=== PATIENT | male | born 1980 | race Caucasian/White ===

== ENCOUNTER 2020-02-05 20:52 | Inpatient (IN) ==
[2020-02-05] MEDS ORDERED: SODIUM CHLORIDE 0.9% 1,000 ML IV STA (21:55)
[2020-02-05] MEDS ORDERED: ONDANSETRON 4 MG/2 ML VIAL IV ONE (21:55)
[2020-02-05] MEDS ORDERED: MORPHINE 4 MG/1 ML VIAL IV STA (21:55)
[2020-02-05] MEDS ORDERED: ALUM/MAG/SIMETH/LIDO VISC 1:1 30 ML BOTTLE PO STA (22:37)
[2020-02-05] MEDS ORDERED: NITROGLYCERIN 2% OINT 1 INCH/GM PACK TOP STA (22:43)
[2020-02-05 22:44] LABS: Basophils # 0.1 10*3/uL (0.0-0.2); Basophils % 0.5 % (0.0-0.8); Eosinophils # 0.1 10*3/uL (0.0-0.87); Eosinophils % 0.5 % (0.00-10.9); Hematocrit 43.4 VOL% (42.0-52.0); Hemoglobin 15.1 GM/DL (14.0-18.0); Immature Granulocytes % 0.7 %; Immature Granulocytes Absolute 0.16 #; Lymphocytes # 0.6 10*3/uL (1.4-4.0); Lymphocytes % 2.9 % (21.2-54.2); Mean Corpuscular HGB Conc 34.8 GM/DL (32-36); Mean Corpuscular Volume 94.8 FL (87-102); Mean Platelet Volume 9.2 FL (9.6-12.0); Neutrophils % 86.4 % (38.7-73.9); Platelet Count 246 T/CUMM (130-400); Red Blood Count 4.58 MC/CUMM (3.8-5.5); Red Cell Distribution Width 12.5 % (9.3-17.3); White Blood Count 21.9 T/CUMM (4-12)
[2020-02-05] MEDS ORDERED: HYDROmorphone 2 MG/1 ML VIAL IV STA (23:07)
[2020-02-05 23:21] LABS: Albumin 3.4 G/DL (3.4-5.0); Bilirubin,Total 0.9 MG/DL (0.2-1.0); Calcium 8.6 MG/DL (8.5-10.1); Osmolality,Calculated 275.8 MOS/KG (273-304); Total Protein 6.2 G/DL (6.4-8.3)
[2020-02-05 23:28] LABS: Band Neutrophils 1 % (0-10); Lymphocytes 1 % (20-55); Segmented Neutrophils 95 % (50-85); Total Cells Counted 100
[2020-02-05 23:29] LABS: Platelet Estimate Normal; Polychromasia Slight
[2020-02-05 23:31] LABS: Stomatocytes Slight
[2020-02-05 23:32] LABS: Spherocytes Slight
[2020-02-05] MEDS ORDERED: PIPERACILLIN/TAZOBACTAM 3,375 MG in SODIUM CHLORIDE 0.9% 100 ML IV STA (23:43)
[2020-02-06 00:01] LABS: Bilirubin,Urine Negative (Negative); Blood, Urine Negative (Negative); Glucose,Urine (UA) Negative (Negative); Hyaline Casts,Urine 3 /LPF (0-3); Ketones,Urine Negative (Negative); Nitrite,Urine Negative (Negative); Protein,Urine Negative; RBC,Urine 9 /HPF (0-4); Urine Appearance CLEAR (Clear); Urine Color Yellow (Yellow); Urine Specific Gravity > 1.060 (1.001-1.035); Urine Urobilinogen < 2.0 EU/DL (0.2-1.0); WBC,Urine 1 /HPF (0-6)
[2020-02-06 00:38] LABS: Risk Ratio 7.32; VLDL CHOLESTEROL 142.6 MG/DL
[2020-02-06] MEDS ORDERED: HYDROmorphone 2 MG/1 ML VIAL IV ONE (01:17)
[2020-02-06] MEDS ORDERED: PROMETHAZINE 25 MG/1 ML VIAL IM PRN (01:23)
[2020-02-06] MEDS ORDERED: ACETAMINOPHEN 325 MG TABLET PO PRN (01:23)
[2020-02-06 02:03] LABS: Barbiturates Screen,Urine Negative (Negative); Benzodiazepines Screen,Urine Negative (Negative); Cannabinoid Screen,Urine Positive (Negative); Opiate Screen,Urine Positive (Negative); Phencyclidine Screen,Urine Negative (Negative)
[2020-02-06] MEDS: SODIUM CHLORIDE 0.9% 1,000 ML IV SCH ×4 (02:14→23:40)
[2020-02-06] MEDS: HYDROmorphone 2 MG/1 ML VIAL IV PRN ×6 (03:10→23:44)
[2020-02-06 06:03] LABS: Basophils % 0.2 % (0.0-0.8); Hematocrit 43.5 VOL% (42.0-52.0); Hemoglobin 14.9 GM/DL (14.0-18.0); Immature Granulocytes % 0.5 %; Immature Granulocytes Absolute 0.08 #; Lymphocytes # 1.2 10*3/uL (1.4-4.0); Lymphocytes % 6.7 % (21.2-54.2); Mean Corpuscular HGB Conc 34.3 GM/DL (32-36); Mean Corpuscular Volume 94.4 FL (87-102); Mean Platelet Volume 9.9 FL (9.6-12.0); Monocytes % 7.1 % (1.7-12.7); Neutrophils % 85.5 % (38.7-73.9); Platelet Count 234 T/CUMM (130-400); Red Blood Count 4.61 MC/CUMM (3.8-5.5); Red Cell Distribution Width 12.7 % (9.3-17.3); White Blood Count 17.4 T/CUMM (4-12)
[2020-02-06] MEDS: ONDANSETRON 4 MG/2 ML VIAL IV PRN ×5 (07:09→23:42)
[2020-02-06 07:10] LABS: Bilirubin,Total 1.1 MG/DL (0.2-1.0); Calcium 7.9 MG/DL (8.5-10.1); Osmolality,Calculated 280.4 MOS/KG (273-304); Total Protein 6.2 G/DL (6.4-8.3)
[2020-02-06] MEDS: gemfibroziL 600 MG TABLET PO SCH ×2 (09:17→16:28)
[2020-02-06] MEDS: lamoTRIgine 100 MG TABLET PO SCH (09:17)
[2020-02-06] MEDS: PANTOPRAZOLE 40 MG VIAL IV SCH ×2 (09:20→21:09)
[2020-02-06] MEDS: cefTRIAXone 2,000 MG in SYRINGE 1 EACH IV SCH (09:23)
[2020-02-06] MEDS: ENOXAPARIN 40 MG/0.4 ML SYRINGE SUBCUT SCH (10:58)
[2020-02-06] MEDS: tiZANidine 4 MG TABLET PO PRN ×2 (11:03→20:52)
[2020-02-06] MEDS ORDERED: LORazepam 2 MG/1 ML VIAL IV PRN (13:14)
[2020-02-06] MEDS ORDERED: BISACODYL 10 MG SUPP RECTAL ONE (13:15)
[2020-02-06] MEDS: GABAPENTIN 300 MG CAPSULE PO SCH (20:49)
[2020-02-06] MEDS: MIRTAZAPINE 15 MG TABLET PO SCH (20:49)
[2020-02-07] MEDS: HYDROmorphone 2 MG/1 ML VIAL IV PRN ×5 (04:20→22:09)
[2020-02-07] MEDS: ONDANSETRON 4 MG/2 ML VIAL IV PRN ×3 (04:20→14:23)
[2020-02-07 05:24] LABS: Basophils # 0.1 10*3/uL (0.0-0.2); Basophils % 0.4 % (0.0-0.8); Eosinophils # 0.1 10*3/uL (0.0-0.87); Eosinophils % 0.5 % (0.00-10.9); Hematocrit 41.7 VOL% (42.0-52.0); Hemoglobin 13.9 GM/DL (14.0-18.0); Immature Granulocytes % 0.5 %; Immature Granulocytes Absolute 0.07 #; Lymphocytes # 1.1 10*3/uL (1.4-4.0); Lymphocytes % 7.3 % (21.2-54.2); Mean Corpuscular HGB Conc 33.3 GM/DL (32-36); Mean Corpuscular Volume 96.3 FL (87-102); Monocytes % 7.4 % (1.7-12.7); Neutrophils % 83.9 % (38.7-73.9); Platelet Count 157 T/CUMM (130-400); Red Blood Count 4.33 MC/CUMM (3.8-5.5); Red Cell Distribution Width 13.2 % (9.3-17.3); White Blood Count 14.4 T/CUMM (4-12)
[2020-02-07 05:45] LABS: Albumin 2.4 G/DL (3.4-5.0); Calcium 7.7 MG/DL (8.5-10.1); Osmolality,Calculated 276.7 MOS/KG (273-304); Total Protein 5.9 G/DL (6.4-8.3)
[2020-02-07 05:53] LABS: Band Neutrophils 7 % (0-10); Lymphocytes 6 % (20-55); Metamyelocytes 1 %; Segmented Neutrophils 84 % (50-85); Total Cells Counted 100
[2020-02-07 05:54] LABS: Hypochromasia Slight; Platelet Estimate Adequate
[2020-02-07] MEDS: SODIUM CHLORIDE 0.9% 1,000 ML IV SCH ×3 (07:04→23:40)
[2020-02-07] MEDS: gemfibroziL 600 MG TABLET PO SCH ×2 (08:13→17:29)
[2020-02-07] MEDS: BISACODYL 5 MG TABLET PO PRN (08:13)
[2020-02-07] MEDS: lamoTRIgine 100 MG TABLET PO SCH (08:13)
[2020-02-07] MEDS: PANTOPRAZOLE 40 MG VIAL IV SCH ×2 (08:15→22:05)
[2020-02-07] MEDS: ENOXAPARIN 40 MG/0.4 ML SYRINGE SUBCUT SCH (08:16)
[2020-02-07] MEDS: cefTRIAXone 2,000 MG in SYRINGE 1 EACH IV SCH (08:16)
[2020-02-07] MEDS: METOCLOPRAMIDE 10 MG/2 ML VIAL IV PRN ×2 (10:21→18:32)
[2020-02-07] MEDS: tiZANidine 4 MG TABLET PO PRN ×2 (10:21→22:04)
[2020-02-07] MEDS: GABAPENTIN 300 MG CAPSULE PO SCH (22:04)
[2020-02-07] MEDS: MIRTAZAPINE 15 MG TABLET PO SCH (22:04)
[2020-02-08] MEDS: HYDROmorphone 2 MG/1 ML VIAL IV PRN ×2 (03:06→09:07)
[2020-02-08] MEDS: SODIUM CHLORIDE 0.9% 1,000 ML IV SCH (05:58)
[2020-02-08] MEDS: METOCLOPRAMIDE 10 MG/2 ML VIAL IV PRN ×2 (06:03→12:35)
[2020-02-08 08:06] LABS: Basophils # 0.1 10*3/uL (0.0-0.2); Basophils % 0.5 % (0.0-0.8); Eosinophils # 0.1 10*3/uL (0.0-0.87); Eosinophils % 1.1 % (0.00-10.9); Immature Granulocytes % 1.5 %; Immature Granulocytes Absolute 0.19 #; Lymphocytes # 1.1 10*3/uL (1.4-4.0); Lymphocytes % 8.2 % (21.2-54.2); Mean Corpuscular HGB Conc 32.8 GM/DL (32-36); Mean Corpuscular Volume 99.7 FL (87-102); Mean Platelet Volume 9.6 FL (9.6-12.0); Monocytes % 9.1 % (1.7-12.7); NRBC # 0.02 10*3/uL; Neutrophils % 79.6 % (38.7-73.9); Platelet Count 147 T/CUMM (130-400); Red Blood Count 3.61 MC/CUMM (3.8-5.5); Red Cell Distribution Width 13.2 % (9.3-17.3); White Blood Count 12.9 T/CUMM (4-12)
[2020-02-08 08:24] LABS: Albumin 2.2 G/DL (3.4-5.0); Bilirubin,Total 0.8 MG/DL (0.2-1.0); Calcium 8.1 MG/DL (8.5-10.1); Hemoglobin 11.8 GM/DL (14.0-18.0); Osmolality,Calculated 271.7 MOS/KG (273-304); Total Protein 6.1 G/DL (6.4-8.3)
[2020-02-08 08:43] LABS: Band Neutrophils 1 % (0-10); Eosinophils 3 % (0-10); Hypochromasia 1+; Lymphocytes 9 % (20-55); Platelet Estimate Adequate; Segmented Neutrophils 80 % (50-85); Total Cells Counted 100
[2020-02-08 08:44] LABS: Microcytosis Slight
[2020-02-08] MEDS: gemfibroziL 600 MG TABLET PO SCH (09:07)
[2020-02-08] MEDS: BISACODYL 5 MG TABLET PO PRN (09:07)
[2020-02-08] MEDS: lamoTRIgine 100 MG TABLET PO SCH (09:07)
[2020-02-08] MEDS: ENOXAPARIN 40 MG/0.4 ML SYRINGE SUBCUT SCH (09:07)
[2020-02-08 11:52] VITALS: BP 129/85
[2020-02-08] MEDS: tiZANidine 4 MG TABLET PO PRN (14:39)
== END 2020-02-08 15:02 | disposition home or self-care (01) | DRG 439 ==
LOC: N.ED 20:52 → SUATTDRO 02-06 00:06 → N.EDINP 02-06 00:06 → N.5E 02-06 01:26
PROVIDERS: ADMIT Internal Medicine; ATTEND Internal Medicine